=== PATIENT | female | born 2000 | race African-American/Black ===

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

== ENCOUNTER 2024-04-24 05:53 | Emergency (ER) | payer BC ==
[~2024-04-24] VITALS: Ht 160 cm; Wt 60.0 kg
[2024-04-24 05:59] VITALS: O2SAT 99
[2024-04-24] MEDS: LORAZEPAM 1MG TABLET PO ONE (06:45)
[2024-04-24 07:13] LABS: CLARITY URINE CLEAR (CLEAR); COLOR URINE YELLOW (YELLOW); GLUCOSE URINE NEGATIVE (NEGATIVE); KETONES URINE TRACE (NEGATIVE); LEUKOCYTE ESTERASE URINE NEGATIVE (NEGATIVE); NITRITE URINE NEGATIVE (NEGATIVE); OCCULT BLOOD URINE NEGATIVE (NEGATIVE); PH URINE 5.5 (4.5-8.0); PROTEIN URINE TRACE (NEGATIVE); SPECIFIC GRAVITY URINE 1.022 (1.005-1.030)
[2024-04-24 07:18] LABS: CHLORIDE 108 mEq/L (98-107); POTASSIUM 3.7 mEq/L (3.5-5.1); SODIUM 140 mEq/L (136-145)
[2024-04-24 07:19] LABS: CALCIUM 9.4 mg/dL (8.7-10.4); CARBON DIOXIDE 26 mEq/L (21-32)
[2024-04-24 07:24] LABS: CREATININE 0.9 mg/dL (0.6-1.0); GLUCOSE 105 mg/dL (70-105); UREA NITROGEN BLOOD 6 mg/dL (9-23)
[2024-04-24 07:26] LABS: ACETAMINOPHEN < 2 ug/mL (10-30)
[2024-04-24 07:36] LABS: ETHANOL BLOOD < 10 mg/dL (<10)
[2024-04-24 07:39] LABS: BASOPHILS % 0.7 % (0.0-2.0); EOSINOPHILS % 3.2 % (0.0-5.0); HEMATOCRIT. 42.1 % (36.0-48.0); HEMOGLOBIN. 13.7 g/dL (12.0-16.0); LYMPHOCYTES % 29.8 % (20.0-50.0); MEAN CORPUSCULAR HEMOGLOBIN 29.6 pg (28.0-32.0); MEAN CORPUSCULAR HGB CONC 32.6 g/dL (31.0-37.0); MEAN CORPUSCULAR VOLUME 90.8 fL (81.0-99.0); MEAN PLATELET VOLUME 6.8 fl (7.4-10.4); MONOCYTES % 7.5 % (2.0-8.0); NEUTROPHILS % 58.8 % (40.0-76.0); PLATELET 366 x1000/uL (130-400); RED BLOOD CELL COUNT 4.63 mill/uL (4.2-5.4); RED CELL DISTRIBUTION WIDTH 13.6 % (11.6-14.6); WHITE BLOOD COUNT 6.9 x1000/uL (4.5-11.0)
[2024-04-24 07:44] LABS: *AMPHETAMINES SCREEN URINE NEGATIVE (NEGATIVE); *BARBITURATES SCREEN URINE NEGATIVE (NEGATIVE); *BENZODIAZEPINES SCREEN URINE NEGATIVE (NEGATIVE); *COCAINE SCREEN URINE NEGATIVE (NEGATIVE)
[2024-04-24 07:45] LABS: CANNABINOID URINE SCREEN PRESUMPTIVE POSITIVE (NEGATIVE); ECSTASY MDMA SCREEN URINE NEGATIVE (NEGATIVE); METHADONE URINE SCREEN NEGATIVE (NEGATIVE); OPIATES URINE SCREEN NEGATIVE (NEGATIVE); PHENCYCLIDINE URINE SCREEN NEGATIVE (NEGATIVE)
[2024-04-24 07:51] LABS: HCG SCREEN NEGATIVE
[2024-04-24 08:35] LABS: MUCUS URINE 1+ /lpf (< = 2+); SQUAMOUS EPITHELIAL CELL URINE 2+ /lpf (RARE/1+)
[2024-04-24 08:36] LABS: BACTERIA URINE TRACE
[2024-04-24 08:37] LABS: CALCIUM OXALATE CRYSTALS URINE 2+ /lpf
[2024-04-24 08:38] LABS: RBC URINE NONE SEEN /hpf (0-2); WBC URINE 0-2 /hpf (0-2)
[2024-04-24] MEDS: HALOPERIDOL LACTATE 5MG/ML VIAL IM ONE (10:58)
[2024-04-24] MEDS: LORAZEPAM 2MG/ML INJ IM ONE (10:58)
[2024-04-24] MEDS: DIPHENHYDRAMINE 50MG/ML VIAL IM ONE (10:58)
[2024-04-24 15:36] VITALS: BP 102/63; PULSE 67; RESP 18; TEMP 37.16964; O2SAT 100
== END 2024-04-24 15:39 ==
LOC: ER 05:53
DX: Z04.6 Encounter for general psychiatric examination, requested by authority (principal); F31.9 Bipolar disorder, unspecified; F12.10 Cannabis abuse, uncomplicated; Z20.822 Contact with and (suspected) exposure to COVID-19
CPT/HCPCS: 80305; 80048; 81003; 80307; 80329; 80320; 84703; 85025; 36415; 99285; 87426; Z7610; G0480

== ENCOUNTER 2025-01-29 18:09 | Emergency (ER) | payer BC, MEDICAID ==
[~2025-01-29] VITALS: Ht 160 cm; Wt 56.2 kg
[2025-01-29 18:10] VITALS: O2SAT 99
[2025-01-29 19:59] LABS: *AMPHETAMINES SCREEN URINE NEGATIVE (NEGATIVE)
[2025-01-29 20:00] LABS: *BARBITURATES SCREEN URINE NEGATIVE (NEGATIVE); *BENZODIAZEPINES SCREEN URINE NEGATIVE (NEGATIVE); *COCAINE SCREEN URINE NEGATIVE (NEGATIVE); CANNABINOID URINE SCREEN PRESUMPTIVE POSITIVE (NEGATIVE); ECSTASY MDMA SCREEN URINE NEGATIVE (NEGATIVE); METHADONE URINE SCREEN NEGATIVE (NEGATIVE); OPIATES URINE SCREEN NEGATIVE (NEGATIVE); PHENCYCLIDINE URINE SCREEN NEGATIVE (NEGATIVE)
[2025-01-29 20:31] LABS: BASOPHILS % 1.0 % (0.0-2.0); EOSINOPHILS % 1.6 % (0.0-5.0); HEMATOCRIT. 40.1 % (36.0-48.0); HEMOGLOBIN. 12.9 g/dL (12.0-16.0); LYMPHOCYTES % 32.8 % (20.0-50.0); MEAN PLATELET VOLUME 6.5 fl (7.4-10.4); MONOCYTES % 6.8 % (2.0-8.0); NEUTROPHILS % 57.8 % (40.0-76.0); PLATELET 371 x1000/uL (130-400); RED BLOOD CELL COUNT 4.42 mill/uL (4.2-5.4); RED CELL DISTRIBUTION WIDTH 13.9 % (11.6-14.6)
[2025-01-29 20:45] LABS: CREATININE 0.9 mg/dL (0.6-1.0); UREA NITROGEN BLOOD 8 mg/dL (9-23)
[2025-01-29 20:46] LABS: ETHANOL BLOOD < 10 mg/dL (<10); HCG SCREEN NEGATIVE
[2025-01-29] MEDS: MIDAZOLAM HCL 2 MG/2 ML VIAL IM ONE (21:45)
[2025-01-29] MEDS: OLANZAPINE 10 MG/VIAL IM ONE ×2 (21:51→23:57)
[2025-01-30] MEDS: LORAZEPAM 2MG/ML UD SYRINGE IM NR (02:00)
[2025-01-30] MEDS: DIPHENHYDRAMINE 50MG/ML VIAL IM PRN (02:00)
[2025-01-30] MEDS: ONDANSETRON 4MG ODT PO ONE (18:59)
[2025-01-30] MEDS: TRAZODONE HCL 50MG TABLET PO STA (18:59)
[2025-01-30 19:23] LABS: CLARITY URINE CLEAR (CLEAR); COLOR URINE YELLOW (YELLOW); GLUCOSE URINE NEGATIVE (NEGATIVE); KETONES URINE NEGATIVE (NEGATIVE); LEUKOCYTE ESTERASE URINE NEGATIVE (NEGATIVE); NITRITE URINE NEGATIVE (NEGATIVE); OCCULT BLOOD URINE NEGATIVE (NEGATIVE); PH URINE 7.0 (4.5-8.0); PROTEIN URINE NEGATIVE (NEGATIVE); SPECIFIC GRAVITY URINE 1.023 (1.005-1.030); UROBILINOGEN URINE 0.2 E.U./dL (0.2-1.0)
[2025-01-30] MEDS: OLANZAPINE 5MG TABLET ODT PO SCH (21:00)
[2025-01-31] MEDS: TRAZODONE HCL 50MG TABLET PO PRN (00:52)
[2025-01-31 17:06] VITALS: BP 110/73; PULSE 86; RESP 18; TEMP 37; O2SAT 99
== END 2025-01-31 17:10 ==
LOC: ER 18:09
DX: F31.9 Bipolar disorder, unspecified (principal); F20.9 Schizophrenia, unspecified; Z00.8 Encounter for other general examination; Z91.148 Patient's other noncompliance with medication regimen for other reason; Z79.899 Other long term (current) drug therapy; Z20.822 Contact with and (suspected) exposure to COVID-19
CPT/HCPCS: 80305; 80048; 81003; 80307; 80329; 80320; 84703; 85025; 36415; 93005; 96372 ×2; 99285; 87426; J3490; J2250; Z7610 ×2; Q0162; J1200; J2060; G0480

== ENCOUNTER 2025-03-05 16:21 | Emergency (ER) | payer MEDICAID ==
[~2025-03-05] VITALS: Ht 160 cm; Wt 56.0 kg
[2025-03-05 16:30] VITALS: O2SAT 98
[2025-03-05] MEDS ORDERED: HALO5TAB2 PO (16:36)
[2025-03-05] MEDS ORDERED: BENZ2TAB65 PO (16:36)
[2025-03-05] MEDS ORDERED: LORAZEPAM 1MG TABLET PO ONE (16:45)
[2025-03-05 18:23] LABS: BASOPHILS % 0.7 % (0.0-2.0); EOSINOPHILS % 0.3 % (0.0-5.0); HEMATOCRIT. 34.0 % (36.0-48.0); HEMOGLOBIN. 11.3 g/dL (12.0-16.0); LYMPHOCYTES % 13.6 % (20.0-50.0); MEAN PLATELET VOLUME 6.5 fl (7.4-10.4); MONOCYTES % 5.9 % (2.0-8.0); NEUTROPHILS % 79.5 % (40.0-76.0); PLATELET 366 x1000/uL (130-400); RED BLOOD CELL COUNT 3.76 mill/uL (4.2-5.4); RED CELL DISTRIBUTION WIDTH 13.7 % (11.6-14.6)
[2025-03-05 18:35] LABS: HCG SCREEN NEGATIVE
[2025-03-05 18:36] LABS: CREATININE 0.7 mg/dL (0.6-1.0); UREA NITROGEN BLOOD 7 mg/dL (9-23)
[2025-03-05 18:37] LABS: ETHANOL BLOOD < 10 mg/dL (<10)
[2025-03-05 18:38] LABS: ASPARTATE AMINOTRANSFERASE 10 IU/L (<34); BILIRUBIN DIRECT < 0.1 mg/dL (<=3.0); BILIRUBIN TOTAL 0.3 mg/dL (0.1-1.0); PROTEIN TOTAL 6.4 g/dL (6.0-8.3)
[2025-03-05 19:24] LABS: *AMPHETAMINES SCREEN URINE NEGATIVE (NEGATIVE); *BARBITURATES SCREEN URINE NEGATIVE (NEGATIVE); *BENZODIAZEPINES SCREEN URINE NEGATIVE (NEGATIVE)
[2025-03-05 19:25] LABS: *COCAINE SCREEN URINE NEGATIVE (NEGATIVE); CANNABINOID URINE SCREEN PRESUMPTIVE POSITIVE (NEGATIVE); ECSTASY MDMA SCREEN URINE NEGATIVE (NEGATIVE); METHADONE URINE SCREEN NEGATIVE (NEGATIVE); OPIATES URINE SCREEN NEGATIVE (NEGATIVE); PHENCYCLIDINE URINE SCREEN NEGATIVE (NEGATIVE)
[2025-03-05 19:57] VITALS: BP 120/76; PULSE 78; RESP 22; TEMP 36.7; O2SAT 95
== END 2025-03-05 20:08 | disposition home or self-care (01) ==
LOC: ER 16:21
DX: G24.01 Drug induced subacute dyskinesia (principal); F25.9 Schizoaffective disorder, unspecified; F31.9 Bipolar disorder, unspecified; F41.9 Anxiety disorder, unspecified; Z79.899 Other long term (current) drug therapy; F12.90 Cannabis use, unspecified, uncomplicated; Z20.822 Contact with and (suspected) exposure to COVID-19
CPT/HCPCS: 36415; 80048; 80076; 80305; 80307; 80320; 80329; 82962; 84703; 85025; 87426; 93005; 99284; G0480

== ENCOUNTER 2025-05-19 04:49 | Emergency (ER) | payer MEDICAID, OTHER ==
[~2025-05-19] VITALS: Ht 167.6 cm; Wt 69.0 kg
[~2025-05-19 04:49] MED LIST: BENZ2TAB65 PO; HALO5TAB2 PO
[2025-05-19 04:50] VITALS: O2SAT 100
[2025-05-19 05:26] VITALS: BP 123/80; PULSE 65; RESP 15; TEMP 36.9; O2SAT 97
== END 2025-05-19 05:27 | disposition home or self-care (01) ==
LOC: ER 04:49
DX: Z00.00 Encounter for general adult medical examination without abnormal findings (principal); F41.9 Anxiety disorder, unspecified; F12.90 Cannabis use, unspecified, uncomplicated; Z79.899 Other long term (current) drug therapy
CPT/HCPCS: 99283